=== PATIENT | female | born 1980 | race Caucasian/White ===

== ENCOUNTER 2017-08-09 18:56 | Emergency (ER) | payer OTHER ==
[~2017-08-09] VITALS: Ht 165.1 cm; Wt 73.0 kg
[~2017-08-09 18:56] MED LIST: AMOXICILLIN875 MG PO; BENTYL10 MG/1 ML PO; CITRATE OF MAG296 ML PO; DELTASONE20 MG PO; EC-NAPROSYN500 MG PO; FLEXERIL PO; HYDROXYZINE HCL25 M1 GT; LORATIDINE 10 M10 M1 PO; METHOTREXATE; NAPROSYN500 MG PO; NOHOMEMEDICATIONS; NORCO 5-325 TA1 EACH PO; PROTONIX40 M1 PO; ROBAXIN 750 MG750 M1 PO; TRAMADOL 50 MG50 MG PO; ULTRAM 50MG TAB50 MG PO; VENTOLIN HFA 1818 GM INH; ZOFRAN ODT4 MG PO; ZPAK PO
[2017-08-09] MEDS ORDERED: CELEXA20 MG (19:07)
[2017-08-09 19:57] LABS: ABSOLUTE EOSINOPHILS 0.1 thou/uL (0.0-0.7); ABSOLUTE LYMPHOCYTES 2.9 thou/uL (0.8-5.3); ABSOLUTE MONOCYTES 0.4 thou/uL (0.0-1.2); ABSOLUTE NEUTROPHILS 2.4 thou/uL (1.6-8.1); BASOPHILS 0.7 %; HEMATOCRIT 44.2 % (37.0-47.0); HEMOGLOBIN 15.2 gm/dL (12.0-15.0); LYMPHOCYTES 50.6 %; MCH 32.1 pg (26.0-34.0); MCHC 34.3 g/dL (28.0-37.0); MCV 93.5 fL (80.0-100.0); MONOCYTES 6.7 %; MPV 8.2 fl. (7.2-11.1); NUCLEATED RBCS 0 /100WBC; PLATELET COUNT* 209 thou/uL (150-400); RBC 4.73 mil/uL (4.20-5.00); RDW-CV 12.3 % (10.5-14.5); WBC 5.8 thou/uL (4.0-11.0)
[2017-08-09 20:03] LABS: APTT 29.8 Seconds (25.0-31.3); CALCIUM 8.8 mg/dL (8.5-10.1); CREATININE 0.8 mg/dL (0.6-1.3); INR 1.1; POTASSIUM 3.7 mmol/L (3.5-5.1); PROTIME 10.3 Seconds (9.20-11.50)
[2017-08-09 20:07] LABS: TOTAL BILIRUBIN 0.7 mg/dL (<0.1-1.0); TOTAL PROTEIN 7.8 g/dL (6.4-8.2)
[2017-08-09 21:02] VITALS: BP 110/75
== END 2017-08-09 21:02 | disposition home or self-care (01) ==
LOC: M.ERS 18:56
PROVIDERS: Family Medicine
DX: R11.2 Nausea with vomiting, unspecified (principal); L40.9 Psoriasis, unspecified; M19.90 Unspecified osteoarthritis, unspecified site; J44.9 Chronic obstructive pulmonary disease, unspecified; F17.200 Nicotine dependence, unspecified, uncomplicated

== ENCOUNTER 2018-08-16 13:15 | Emergency (ER) | payer MEDICAID ==
[~2018-08-16] VITALS: Ht 152.4 cm; Wt 76.3 kg
[~2018-08-16 13:15] MED LIST changes: +CELEXA20 MG
[2018-08-16] MEDS ORDERED: HYDROXYZINE HCL25 M1 PO (13:33)
[2018-08-16] MEDS ORDERED: PHENERGAN 25 MG25 M1 PO (13:38)
[2018-08-16] MEDS ORDERED: TREXIMET 85-501 EACH PO (13:39)
[2018-08-16] MEDS ORDERED: TOPAMAX50 MG PO (13:39)
[2018-08-16] MEDS ORDERED: TRIAMCINOLONE A80 G2 TOP (13:39)
[2018-08-16] MEDS ORDERED: NAPROSYN500 MG PO (13:40)
[2018-08-16] MEDS ORDERED: CYCLOBENZAPRINE5 MG PO (13:40)
[2018-08-16] MEDS ORDERED: MAXALT MLT ODT10 M1 PO (13:41)
[2018-08-16 14:04] VITALS: BP 92/42
== END 2018-08-16 14:05 | disposition home or self-care (01) ==
LOC: M.ERS 13:15
DX: M54.9 Dorsalgia, unspecified (principal); M79.10 Myalgia, unspecified site; J44.9 Chronic obstructive pulmonary disease, unspecified; M06.9 Rheumatoid arthritis, unspecified; Y04.2XXA Assault by strike against or bumped into by another person, initial encounter; Y93.89 Activity, other specified; Y92.89 Other specified places as the place of occurrence of the external cause; Y99.8 Other external cause status

== ENCOUNTER 2020-11-25 05:43 | Emergency (ER) | payer MEDICAID ==
[~2020-11-25] VITALS: Ht 154.9 cm; Wt 81.7 kg
[~2020-11-25 05:43] MED LIST changes: +CYCLOBENZAPRINE5 MG PO; +HYDROXYZINE HCL25 M1 PO; +MAXALT MLT ODT10 M1 PO; +PHENERGAN 25 MG25 M1 PO; +TOPAMAX50 MG PO; +TREXIMET 85-501 EACH PO; +TRIAMCINOLONE A80 G2 TOP
[2020-11-25] MEDS ORDERED: HUMIRA PEN40 MG/0.4 (06:03)
[2020-11-25 06:14] LABS: ABSOLUTE EOSINOPHILS 0.1 thou/uL (0.0-0.7); ABSOLUTE LYMPHOCYTES 2.8 thou/uL (0.8-5.3); ABSOLUTE MONOCYTES 0.5 thou/uL (0.0-1.2); ABSOLUTE NEUTROPHILS 3.5 thou/uL (1.6-8.1); BASOPHILS 0.5 %; EOSINOPHILS 1.2 %; HEMATOCRIT 41.8 % (37.0-47.0); HEMOGLOBIN 14.8 gm/dL (12.0-15.0); LYMPHOCYTES 40.6 %; MCH 33.8 pg (26.0-34.0); MCHC 35.4 g/dL (28.0-37.0); MCV 95.4 fL (80.0-100.0); MPV 8.8 fl. (7.2-11.1); NUCLEATED RBCS 0 /100WBC; PLATELET COUNT* 189 thou/uL (150-400); POLYS 50.7 %; RBC 4.38 mil/uL (4.20-5.00); RDW-CV 12.5 % (10.5-14.5)
[2020-11-25 06:23] LABS: CREATININE 0.8 mg/dL (0.6-1.3); POTASSIUM 4.3 mmol/L (3.5-5.1)
[2020-11-25 06:26] LABS: URINE BILIRUBIN NEGATIVE (Negative); URINE BLOOD 3+ (Negative); URINE CLARITY CLEAR; URINE COLOR YELLOW; URINE GLUCOSE-RANDOM NEGATIVE (Negative); URINE KETONES NEGATIVE (Negative); URINE LEUKOCYTES-REFLEX NEGATIVE (Negative); URINE NITRITE-REFLEX NEGATIVE (Negative); URINE PROTEIN NEGATIVE (Negative); URINE SPECIFIC GRAVITY >= 1.030 (1.005-1.030); URINE UROBILINOGEN 0.2 E.U./dl (0.2-1.0)
[2020-11-25 06:28] LABS: ALBUMIN 3.8 g/dL (3.4-5.0); TOTAL BILIRUBIN 0.2 mg/dL (<0.1-1.0); TOTAL PROTEIN 7.4 g/dL (6.4-8.2)
[2020-11-25 06:32] LABS: AMP/METHAMP Negative (Negative); BACTERIA-REFLEX 1-9 Few /HPF (None Seen); BARBITURATES Negative (Negative); BENZODIAZEPINES Negative (Negative); CASTS None Seen /LPF (None Seen); COCAINE Negative (Negative); CRYSTALS None Seen /LPF (None Seen); METHADONE Negative (Negative); MUCUS None Seen strn/LPF (None Seen); OPIATES Negative (Negative); PCP Negative (Negative); SQUAMOUS 4-10 Moderate /LPF (0-3); THC POSITIVE (Negative); URINE WBC-REFLEX 0-5 Rare /HPF (0-5)
[2020-11-25] MEDS ORDERED: HYDROCODON-ACE1 EAC7 PO (08:31)
[2020-11-25] MEDS ORDERED: ZOFRAN ODT4 MG DISSOLVE (08:31)
[2020-11-25 08:58] VITALS: BP 132/70
== END 2020-11-25 08:59 | disposition home or self-care (01) ==
LOC: M.ERS 05:43
PROVIDERS: Emergency Medicine
DX: R10.31 Right lower quadrant pain (principal); R10.11 Right upper quadrant pain; L40.9 Psoriasis, unspecified; J44.9 Chronic obstructive pulmonary disease, unspecified; M06.9 Rheumatoid arthritis, unspecified; Z98.51 Tubal ligation status; Z79.899 Other long term (current) drug therapy

== ENCOUNTER 2020-12-20 08:56 | Emergency (ER) | payer OTHER, MEDICAID ==
[~2020-12-20] VITALS: Ht 154.9 cm; Wt 81.7 kg
[~2020-12-20 08:56] MED LIST changes: +HUMIRA PEN40 MG/0.4; +HYDROCODON-ACE1 EAC7 PO; +ZOFRAN ODT4 MG DISSOLVE
[2020-12-20 10:50] LABS: URINE BILIRUBIN NEGATIVE (Negative); URINE BLOOD 3+ (Negative); URINE CLARITY CLEAR; URINE COLOR YELLOW; URINE GLUCOSE-RANDOM NEGATIVE (Negative); URINE KETONES NEGATIVE (Negative); URINE LEUKOCYTES NEGATIVE (Negative); URINE NITRITE NEGATIVE (Negative); URINE PROTEIN NEGATIVE (Negative); URINE UROBILINOGEN 0.2 E.U./dl (0.2-1.0)
[2020-12-20 11:02] LABS: AMP/METHAMP Negative (Negative); BARBITURATES Negative (Negative); BENZODIAZEPINES Negative (Negative); COCAINE Negative (Negative); METHADONE Negative (Negative); OPIATES Negative (Negative); PCP Negative (Negative); THC POSITIVE (Negative)
[2020-12-20 11:09] LABS: SQUAMOUS >10 Many /LPF (0-3)
[2020-12-20 11:10] LABS: BACTERIA 1-9 Few /HPF (None Seen); CASTS None Seen /LPF (None Seen); CRYSTALS None Seen /LPF (None Seen); MUCUS None Seen strn/LPF (None Seen); URINE RBC 3-10 Few /HPF (0-2); URINE WBC 0-5 Rare /HPF (0-5)
[2020-12-20 11:30] LABS: CALCIUM 8.7 mg/dL (8.5-10.1); CREATININE 0.7 mg/dL (0.6-1.3); POTASSIUM 3.6 mmol/L (3.5-5.1)
[2020-12-20 11:34] LABS: ALBUMIN 3.7 g/dL (3.4-5.0); TOTAL BILIRUBIN 0.7 mg/dL (<0.1-1.0); TOTAL PROTEIN 7.6 g/dL (6.4-8.2)
[2020-12-20 11:44] LABS: ABSOLUTE LYMPHOCYTES 1.1 thou/uL (0.8-5.3); ABSOLUTE MONOCYTES 1.3 thou/uL (0.0-1.2); ABSOLUTE NEUTROPHILS 16.2 thou/uL (1.6-8.1); BASOPHILS 0.1 %; HEMATOCRIT 38.4 % (37.0-47.0); HEMOGLOBIN 13.7 gm/dL (12.0-15.0); MCHC 35.6 g/dL (28.0-37.0); MCV 92.8 fL (80.0-100.0); MONOCYTES 6.8 %; MPV 8.6 fl. (7.2-11.1); NUCLEATED RBCS 0 /100WBC; PLATELET COUNT* 176 thou/uL (150-400); POLYS 87.1 %; RBC 4.14 mil/uL (4.20-5.00); RDW-CV 12.1 % (10.5-14.5); WBC 18.6 thou/uL (4.0-11.0)
[2020-12-20] MEDS ORDERED: CEPHALEXIN500 MG PO (13:54)
[2020-12-20] MEDS ORDERED: FLEXERIL PO (13:54)
[2020-12-20] MEDS ORDERED: HYDROCODON-ACE1 EAC7 PO (13:56)
[2020-12-20 14:05] VITALS: BP 98/62
== END 2020-12-20 14:05 | disposition home or self-care (01) ==
LOC: M.ERS 08:56
PROVIDERS: Physician Assistant
DX: S92.255A Nondisplaced fracture of navicular [scaphoid] of left foot, initial encounter for closed fracture (principal); Z20.822 Contact with and (suspected) exposure to COVID-19; N39.0 Urinary tract infection, site not specified; M54.5 Low back pain; J01.00 Acute maxillary sinusitis, unspecified; M06.9 Rheumatoid arthritis, unspecified; R11.2 Nausea with vomiting, unspecified; K59.00 Constipation, unspecified; J44.9 Chronic obstructive pulmonary disease, unspecified; Z88.8 Allergy status to other drugs, medicaments and biological substances; Z98.51 Tubal ligation status; W09.8XXA Fall on or from other playground equipment, initial encounter; Y93.89 Activity, other specified; Y92.89 Other specified places as the place of occurrence of the external cause; Y99.9 Unspecified external cause status